=== PATIENT | male | born 1945 | race Caucasian/White ===

== ENCOUNTER → 2016-11-07 | Outpatient (CLI) | payer MEDICARE, OTHER ==
[~2016-11-07] MED LIST: ASPI-515 PO; EZET10TA3 PO; LOVA40TA2 PO; NAPR220C2 PO
== END | disposition home or self-care (01) ==
LOC: STAR 11:09
PROVIDERS: ATTEND Orthopaedic Surgery
DX: M16.11 Unilateral primary osteoarthritis, right hip (principal); M16.12 Unilateral primary osteoarthritis, left hip; M25.551 Pain in right hip; M25.552 Pain in left hip
CPT/HCPCS: 81001; 87081; 87086

== ENCOUNTER 2016-11-14 05:42 | Inpatient (IN) | payer MEDICARE, OTHER ==
[~2016-11-14] VITALS: Ht 182.9 cm; Wt 138.0 kg
[2016-11-14] MEDS ORDERED: LACTATED RINGERS 1,000 ML IV SCH (06:24)
[2016-11-14] MEDS ORDERED: EPINEPHRINE 1 MG/ML, 1ML ONE (06:25)
[2016-11-14] MEDS ORDERED: TRANEXAMIC ACID 100 MG/ML, 10ML ONE ×2 (06:25→07:40)
[2016-11-14] MEDS ORDERED: KETOROLAC 60 MG/2 ML ONE (06:25)
[2016-11-14] MEDS ORDERED: ROPIvacaine/PF 0.2%, 20 ML ONE (06:25)
[2016-11-14] MEDS ORDERED: VANCOMYCIN 1,000 MG ONE (06:25)
[2016-11-14] MEDS ORDERED: SODIUM CHLORIDE 0.9% 50 ML ONE (06:25)
[2016-11-14 06:26] VITALS: BP 140/106
[2016-11-14] MEDS ORDERED: LIDOCAINE 1%, 2ML SQ PRN (06:30)
[2016-11-14] MEDS ORDERED: FENTANYL PF 100 MCG/2ML ONE (06:46)
[2016-11-14] MEDS ORDERED: KETAMINE 10 MG/ML, 20ML ONE (06:48)
[2016-11-14] MEDS ORDERED: DEXAMETHASONE 4 MG/ML, 1ML ONE (07:11)
[2016-11-14] MEDS ORDERED: LIDOCAINE 2%, 2ML ONE (07:11)
[2016-11-14] MEDS ORDERED: CEFAZOLIN 1,000 MG ONE (07:11)
[2016-11-14] MEDS ORDERED: PROPOFOL 10 MG/ML, 20ML ONE (07:11)
[2016-11-14] MEDS ORDERED: SUCCINYLCHOLINE 20 MG/ML, 10ML ONE (07:11)
[2016-11-14] MEDS ORDERED: ONDANSETRON 2MG/ML, 2ML ONE (07:11)
[2016-11-14] MEDS ORDERED: OXYcodone 5 MG/5 ML ORAL.SOL UDC PO PRN (08:00)
[2016-11-14] MEDS ORDERED: LABETALOL 5MG/ML, 20ML IV PRN (08:00)
[2016-11-14] MEDS ORDERED: ONDANSETRON 2MG/ML, 2ML IVPush PRN (08:00)
[2016-11-14] MEDS ORDERED: PROMETHAZINE 25 MG/ML, 1ML IV PRN (08:00)
[2016-11-14] MEDS ORDERED: FENTANYL PF 100 MCG/2ML IV PRN (08:00)
[2016-11-14] MEDS ORDERED: HYDROmorphone 1 MG/ML, 1ML IV PRN ×2 (08:00→09:30)
[2016-11-14] MEDS ORDERED: hydrALAzine 20 MG/ML, 1ML IV PRN (08:00)
[2016-11-14] MEDS ORDERED: EPHEDRINE 50 MG/ML, 1ML IVPush ONE (09:30)
[2016-11-14] MEDS ORDERED: DIPHENHYDRAMINE 50 MG CAPSULE PO PRN (09:30)
[2016-11-14] MEDS ORDERED: SENNA/DOCUSATE TABLET PO PRN (09:30)
[2016-11-14] MEDS ORDERED: SCOPOLAMINE PATCH, 1.5MG PATCH.TD72 TD SCH (09:30)
[2016-11-14] MEDS ORDERED: MAGNESIUM HYDROXIDE 8%, 30ML UDC PO PRN (09:30)
[2016-11-14] MEDS ORDERED: HYDROcodone/APAP 10/325 MG TABLET PO PRN (09:30)
[2016-11-14] MEDS ORDERED: ACETAMINOPHEN 650 MG/20.3 ML UDC PO PRN (09:30)
[2016-11-14] MEDS ORDERED: PROMETHAZINE 12.5 MG SUPP PR PRN (09:30)
[2016-11-14] MEDS ORDERED: BISACODYL 10 MG SUPP PR PRN (09:30)
[2016-11-14] MEDS ORDERED: OXYcodone IR 5MG TABLET PO PRN (09:30)
[2016-11-14] MEDS ORDERED: ONDANSETRON 2MG/ML, 2ML IV PRN (09:30)
[2016-11-14] MEDS ORDERED: ALUMINUM/MAG/SIMETHICONE 30 ML UDC PO PRN (09:30)
[2016-11-14] MEDS ORDERED: PROMETHAZINE 25 MG/ML, 1ML IM PRN (09:30)
[2016-11-14] MEDS ORDERED: ONDANSETRON 4 MG TABLET PO PRN (09:30)
[2016-11-14] MEDS ORDERED: DIAZEPAM 5 MG TABLET PO PRN (09:30)
[2016-11-14] MEDS ORDERED: LACTATED RINGERS 1,000 ML IVBOLUS ONE (09:30)
[2016-11-14] MEDS: HYDROcodone/APAP 10/325 MG TABLET PO SCH ×4 (09:30→23:40)
[2016-11-14] MEDS ORDERED: ZOLPIDEM 5MG TABLET PO PRN (09:30)
[2016-11-14] MEDS ORDERED: PHENYLEPHRINE 10 MG/ML IV ONE (09:30)
[2016-11-14] MEDS ORDERED: TRANEXAMIC ACID 1,000 MG in SODIUM CHLORIDE 0.9% 100 ML IVPB ONE (09:45)
[2016-11-14] MEDS ORDERED: EPHEDRINE 50 MG/ML, 1ML ONE (09:49)
[2016-11-14 10:38] VITALS: BP 94/64
[2016-11-14] MEDS: TAMSULOSIN 0.4 MG CAP.ER.24H PO SCH (12:27)
[2016-11-14] MEDS: D5%-0.45% NACL 1,000 ML IV SCH ×3 (12:28→22:55)
[2016-11-14 13:08] VITALS: BP 119/75
[2016-11-14] MEDS: CEFAZOLIN PMX 2GM/100ML 100 ML IVPB SCH ×2 (16:19→23:40)
[2016-11-14] MEDS: ASPIRIN 81 MG TABLET EC PO SCH (17:56)
[2016-11-14] MEDS: PREGABALIN 75 MG CAPSULE PO SCH (19:48)
[2016-11-14] MEDS: DOCUSATE 100 MG CAPSULE PO SCH (19:48)
[2016-11-14 20:05] VITALS: BP 95/60
[2016-11-14 23:41] VITALS: BP 95/63
[2016-11-15] MEDS: D5%-0.45% NACL 1,000 ML IV SCH (03:27)
[2016-11-15] MEDS: ASPIRIN 81 MG TABLET EC PO SCH (04:27)
[2016-11-15] MEDS: HYDROcodone/APAP 10/325 MG TABLET PO SCH ×2 (04:27→08:15)
[2016-11-15 04:39] VITALS: BP 123/73
[2016-11-15] MEDS ORDERED: DEXAMETHASONE 4 MG/ML, 1ML IVPush SCH (06:00)
[2016-11-15 07:47] VITALS: BP 148/88
[2016-11-15] MEDS: PREGABALIN 75 MG CAPSULE PO SCH (08:15)
[2016-11-15] MEDS: DOCUSATE 100 MG CAPSULE PO SCH (08:15)
[2016-11-15] MEDS: TAMSULOSIN 0.4 MG CAP.ER.24H PO SCH (08:16)
[2016-11-15] MEDS ORDERED: LOVASTATIN 40 MG TABLET PO SCH (09:00)
[2016-11-15] MEDS ORDERED: MULTIVITAMINS/MINERALS TABLET PO SCH (09:00)
[2016-11-15] MEDS ORDERED: EZETIMIBE 10 MG TABLET PO SCH (09:00)
[2016-11-15] MEDS ORDERED: KETOROLAC 30 MG/1 ML IV SCH (09:30)
[2016-11-15 10:04] VITALS: BP 118/72
[2016-11-15] MEDS ORDERED: HYDR-879 PO (11:03)
[2016-11-15] MEDS ORDERED: DIAZ5TAB PO (11:04)
== END 2016-11-15 11:15 | disposition home or self-care (01) | DRG 982 ==
LOC: ORIP 05:42 → 4NOR 10:44 → DCLOUNGE 11-15 11:02
PROVIDERS: ADMIT Orthopaedic Surgery; ATTEND Orthopaedic Surgery
PROC: 0SR902A Replacement of Right Hip Joint with Metal on Polyethylene Synthetic Substitute, Uncemented, Open Approach (ICD-10-PCS; principal; 2016-11-14 07:30)
DX: E78.5 Hyperlipidemia, unspecified (principal); Z68.41 Body mass index [BMI] 40.0-44.9, adult; M16.11 Unilateral primary osteoarthritis, right hip
CPT/HCPCS: 36415; 85014; 85018; 86850; 86900; C1713; J0171; J0690; J1100; J1885; J2405; J2704; J2795; J3010; J3370; J3490; C1776; J0330; J2370; J7120

== ENCOUNTER → 2017-04-26 | Outpatient (CLI) | payer MEDICARE, OTHER ==
[~2017-04-26] MED LIST changes: +DIAZ5TAB PO; +EZET10TA18 PO; -EZET10TA3 PO; +HYDR-879 PO; +ROSU40TA PO; +TRIA15CR3 TP
== END | disposition home or self-care (01) ==
LOC: STAR 08:25
PROVIDERS: ATTEND Orthopaedic Surgery
DX: Z01.818 Encounter for other preprocedural examination (principal); M16.12 Unilateral primary osteoarthritis, left hip; Z79.899 Other long term (current) drug therapy
CPT/HCPCS: 87081

== ENCOUNTER → 2017-11-09 | Outpatient (CLI) | payer MEDICARE, OTHER ==
[~2017-11-09] MED LIST changes: +PRED20TA PO
== END | disposition home or self-care (01) ==
LOC: STAR 12:15
PROVIDERS: ATTEND Orthopaedic Surgery
DX: Z01.818 Encounter for other preprocedural examination (principal); M16.12 Unilateral primary osteoarthritis, left hip; Z96.642 Presence of left artificial hip joint
CPT/HCPCS: 93005

== ENCOUNTER 2019-12-11 07:26 | Outpatient (CLI) | payer MEDICARE, OTHER ==
[~2019-12-11 07:26] MED LIST changes: -EZET10TA18 PO; +EZET10TA70 PO; +HYDR-3622 PO; -HYDR-879 PO; -TRIA15CR3 TP; +TRIA15CR61 TP
== END 2019-12-11 23:59 | disposition home or self-care (01) ==
LOC: CFH 07:26
PROVIDERS: ATTEND Internal Medicine Cardiovascular Disease
DX: R06.02 Shortness of breath (principal)
CPT/HCPCS: 78452; 93017; A9502